=== PATIENT | female | born 1995 | race African-American/Black ===

== ENCOUNTER 2024-07-19 11:29 | Emergency (ER) | payer MEDICAID, OTHER ==
[~2024-07-19] VITALS: Ht 167.6 cm; Wt 70.0 kg
[2024-07-19 11:34] VITALS: BP 128/82; PULSE 105; RESP 18; TEMP 98.8; O2SAT 99
[2024-07-19] MEDS ORDERED: IBUP-2029 MT (12:04)
[2024-07-19] MEDS ORDERED: AMOX1TAB16 MT (12:04)
[2024-07-19] MEDS: AMOXICILLIN/POTASSIUM CLAVULANATE 875/125MG TAB PO ONE (13:15)
== END 2024-07-19 13:20 | disposition home or self-care (01) ==
LOC: ER 11:29
DX: L08.9 Local infection of the skin and subcutaneous tissue, unspecified (principal)
CPT/HCPCS: 73130; 99283; Z7610